=== PATIENT | male | born 1960 | race Caucasian/White ===

== ENCOUNTER 2021-12-17 12:10 | Emergency (ER) | payer OTHER ==
[~2021-12-17] VITALS: Ht 180.3 cm; Wt 84.1 kg
[~2021-12-17 12:10] MED LIST: LIDOcaine 1% W/epiNEPHrine 1:100,000 20ml vial ONE
[2021-12-17 12:49] VITALS: BP 141/84
[2021-12-17] MEDS ORDERED: ondansetron 4mg rapidly disintigrating tab PO ONE (14:50)
[2021-12-17] MEDS ORDERED: HYDROcodone/acetaminophen 5mg/325mg tablet PO ONE (14:50)
[2021-12-17] MEDS ORDERED: ceFAZolin 1GM/D5W- ADD-VANTAGE 50 ML IV ONE (15:10)
[2021-12-17] MEDS ORDERED: TETanus/Pertussis (Acell)/Diphther VAC/PF (Tdap-Adult) 0.5ml syringe IMVAC ONE (15:10)
[2021-12-17] MEDS ORDERED: CEPH500C2 PO (16:01)
[2021-12-17] MEDS ORDERED: HYDR-3965 PO (16:01)
== END 2021-12-17 16:22 | disposition home or self-care (01) ==
LOC: ER 12:15
DX: S81.812A Laceration without foreign body, left lower leg, initial encounter (principal); W45.8XXA Other foreign body or object entering through skin, initial encounter; Y93.89 Activity, other specified; Y92.89 Other specified places as the place of occurrence of the external cause; Y99.8 Other external cause status
CPT/HCPCS: 12001; 73590; 73630; 90471; 90715; 99284; J3490